=== PATIENT | female | born 1975 | race Caucasian/White ===

== ENCOUNTER 2016-09-27 07:42 | Inpatient (IN) | payer BC ==
[2016-09-27] VITALS (19 sets, daily range): BP systolic 84–109; BP diastolic 54–75
[~2016-09-27] VITALS: Ht 157.5 cm; Wt 53.4 kg
[~2016-09-27 07:42] MED LIST: AUGMENTIN500 MG PO; Motrin PO; NATALCARE RX1 TABLE1 PO; Roxicet,Percocet 5/3 PO
[2016-09-27 08:01] LABS: EOSINOPHIL (%) 0.7 % (0-5); EOSINOPHIL COUNT 0.1 K/uL (0-0.3); HEMATOCRIT 33.9 % (36.0-46.0); IMMATURE GRANULOCYTE (%) 0.4 % (0.0-0.7); INSTRUMENT ABS NEUTROPHIL CT 3.7 K/uL; LYMPHOCYTE COUNT 2.6 K/uL (1.0-2.8); MCH 31.1 PG (29.0-34.0); MCHC 33.6 G/DL (30.0-36.0); MCV 92.6 FL (83-99); MEAN PLAT.VOLUME 8.5 uM^3 (9.5-12.4); MONOCYTE (%) 10.5 % (3-12); MONOCYTE COUNT 0.8 K/uL (0-0.8); NEUTROPHIL (%) 52.3 % (45-76); NEUTROPHIL COUNT 3.7 K/uL (1.8-6.4); PLATELET COUNT 369 K/uL (156-360); RBC DIS.WIDTH-CV 11.4 % (11.8-14.6); RBC DIS.WIDTH-SD 38.5 % (39-53); RED BLOOD COUNT 3.66 M/uL (3.80-5.20); WHITE BLOOD COUNT 7.1 K/uL (4.1-10.2)
[2016-09-27 08:08] LABS: INTER. NORMALIZED RATIO 1.1; PROTHROMBIN TIME 12.2 SEC (10.2-12.9)
[2016-09-27 08:32] LABS: TROP-I INTERPRETATION NEGATIVE; TROPONIN-I 0.05 ng/mL (0.0-0.30)
[2016-09-27 08:34] LABS: AMYLASE 77 IU/L (1-118); CHLORIDE 105 mEq/L (99-109); POTASSIUM 4.2 mEq/L (3.7-5.4); SODIUM 139 mEq/L (136-147)
[2016-09-27 08:35] LABS: QUANTITATIVE HCG < 4.0 MIU/ML
[2016-09-27 08:36] LABS: GLUCOSE 97 mg/dL (70-99)
[2016-09-27 08:37] LABS: ANION GAP 14 MEQ/L (2-14)
[2016-09-27 08:39] LABS: SERUM ETHYL ALCOHOL < 10 mg/dL
[2016-09-27 08:40] LABS: GFR ESTIMATE (CALCULATED) > 59 mL/min/
[2016-09-27 08:41] LABS: UREA NITROGEN (BUN) 13 mg/dL (9-23)
[2016-09-27 08:43] LABS: LIPASE 62 U/L (1.0-51.0)
[2016-09-27 10:07] LABS: PTT 180.9 SEC (25-37)
[2016-09-27] MEDS ORDERED: PROBIOTIC1 EAC1 PO (10:52)
[2016-09-27] MEDS ORDERED: CALCIUM500 M4 PO (10:53)
[2016-09-27] MEDS ORDERED: ONE DAILY MULT1 EACH PO (10:54)
[2016-09-27 11:03] LABS: METH RESISTANT S AUREUS PCR NEGATIVE (NEGATIVE); PROBE CHECK PASS; SPECIMEN PROCESSING CONTROL PASS
[2016-09-27 23:08] LABS: TROP-I INTERPRETATION POSITIVE
[2016-09-27 23:10] LABS: TROPONIN-I 15.99 ng/mL (0.0-0.30)
[2016-09-28] VITALS (11 sets, daily range): BP systolic 81–98; BP diastolic 56–69
[2016-09-28 06:02] LABS: EOSINOPHIL (%) 1.1 % (0-5); EOSINOPHIL COUNT 0.1 K/uL (0-0.3); HEMATOCRIT 30.9 % (36.0-46.0); IMMATURE GRANULOCYTE (%) 0.4 % (0.0-0.7); LYMPHOCYTE COUNT 2.1 K/uL (1.0-2.8); MCH 31.1 PG (29.0-34.0); MCHC 33.7 G/DL (30.0-36.0); MCV 92.5 FL (83-99); MEAN PLAT.VOLUME 8.1 uM^3 (9.5-12.4); MONOCYTE (%) 11.6 % (3-12); MONOCYTE COUNT 0.8 K/uL (0-0.8); NEUTROPHIL (%) 56.2 % (45-76); PLATELET COUNT 453 K/uL (156-360); RBC DIS.WIDTH-CV 11.6 % (11.8-14.6); RBC DIS.WIDTH-SD 39.4 % (39-53); RED BLOOD COUNT 3.34 M/uL (3.80-5.20); WHITE BLOOD COUNT 7.1 K/uL (4.1-10.2)
[2016-09-28 06:32] LABS: ANION GAP 11 MEQ/L (2-14); CHLORIDE 107 MEQ/L (99-109); GFR ESTIMATE (CALCULATED) > 59 mL/min/; GLUCOSE 83 mg/dL (70-99); HDL CHOLESTEROL 41 MG/DL (Desirable>=50); LDL CHOLESTEROL 77 mg/dL (Desirable<100); NON-HDL CHOLESTEROL 100 mg/dL (Desirable<160); POTASSIUM 3.8 MEQ/L (3.7-5.4); SAMPLE HEMOLYSIS CHECK 0; SAMPLE ICTERIC CHECK 0; SAMPLE LIPEMIA CHECK 0; SODIUM 138 MEQ/L (136-147); TOTAL CHOLESTEROL 141 mg/dL (Desirable<200); TRIGLYCERIDES 116 MG/DL (Normal: <150); UREA NITROGEN (BUN) 14 mg/dL (9-23)
[2016-09-28 07:33] LABS: TROP-I INTERPRETATION POSITIVE; TROPONIN-I 9.16 ng/mL (0.0-0.30)
[2016-09-29 03:41] VITALS: BP 94/56
[2016-09-29] MEDS ORDERED: BRILINTA90 MG PO (07:25)
[2016-09-29] MEDS ORDERED: PRAVASTATIN SOD40 MG PO (07:25)
[2016-09-29] MEDS ORDERED: LOPRESSOR25 MG PO (07:25)
[2016-09-29] MEDS ORDERED: ASPIR-LOW81 MG PO (07:25)
[2016-09-29 07:54] VITALS: BP 90/51
== END 2016-09-29 11:44 | disposition home or self-care (01) | DRG 251 ==
LOC: EME 07:42 → ENRESERV 07:46 → EME 08:42 → ENRESERV 08:53 → CATH 09:05 → 4WEST 09:33 → 4EAST 09:33 → 4WEST 09-28 10:25 → ENRESERV 09-28 11:14 → 4EAST 09-28 13:12 → ENPENDDIS 09-29 → 4EAST 09-29 11:44
PROVIDERS: Emergency Medicine; Internal Medicine Cardiovascular Disease
PROC: B2151ZZ Fluoroscopy of Left Heart using Low Osmolar Contrast (ICD-10-PCS; principal; 2016-09-27)
PROC: 4A023N7 Measurement of Cardiac Sampling and Pressure, Left Heart, Percutaneous Approach (ICD-10-PCS; principal; 2016-09-27)
PROC: B2111ZZ Fluoroscopy of Multiple Coronary Arteries using Low Osmolar Contrast (ICD-10-PCS; principal; 2016-09-27)
PROC: 02703ZZ Dilation of Coronary Artery, One Artery, Percutaneous Approach (ICD-10-PCS; principal; 2016-09-27)
DX: I21.3 ST elevation (STEMI) myocardial infarction of unspecified site (principal); I25.10 Atherosclerotic heart disease of native coronary artery without angina pectoris; I49.3 Ventricular premature depolarization; K21.9 Gastro-esophageal reflux disease without esophagitis; Z79.82 Long term (current) use of aspirin; Z98.1 Arthrodesis status; I25.2 Old myocardial infarction
CPT/HCPCS: 80048; 80061; 81003; 82150; 83690; 84484; 84702; 85025; 85347; 85610; 85730; 86900; 86901; 87641; 90832; 93005; 93306; 93970; 94799; 99281; 99284; C1725; C1760; C1769; C1887; C1894; G0480; J1644; J2250; J2405; J3010